=== PATIENT | female | born 1980 | race Caucasian/White ===

== ENCOUNTER 2021-12-16 13:22 | Emergency (ER) | payer OTHER ==
[2021-12-16] MEDS ORDERED: NAPROSYN500 MG PO (15:34)
[2021-12-16] MEDS ORDERED: CYCLOBENZAPRINE10 MG PO (15:34)
== END 2021-12-16 15:42 | disposition home or self-care (01) ==
LOC: ER1 13:22
DX: S16.1XXA Strain of muscle, fascia and tendon at neck level, initial encounter (principal); S29.012A Strain of muscle and tendon of back wall of thorax, initial encounter; S39.012A Strain of muscle, fascia and tendon of lower back, initial encounter; V49.59XA Passenger injured in collision with other motor vehicles in traffic accident, initial encounter
CPT/HCPCS: 72125; 72128; 72131; 96372; 99283; J1885

== ENCOUNTER 2022-02-05 13:29 | Emergency (ER) | payer MEDICAID ==
[~2022-02-05 13:29] MED LIST: CYCLOBENZAPRINE10 MG PO; NAPROSYN500 MG PO
[2022-02-05] MEDS ORDERED: CLEOCIN HCL300 MG PO (14:04)
[2022-02-05] MEDS ORDERED: IBUPROFEN600 MG PO (14:11)
== END 2022-02-05 14:22 | disposition home or self-care (01) ==
LOC: ER1 13:29
DX: K02.9 Dental caries, unspecified (principal)
CPT/HCPCS: 99282